=== PATIENT | female | born 1970 | race Two or more races ===

== ENCOUNTER 2017-12-03 13:12 | Outpatient (CLI) | payer OTHER | END 2017-12-03 15:54 | disposition home or self-care (01) | LOC: RAD 501 13:12 | DX: M54.2 Cervicalgia (principal); M25.511 Pain in right shoulder ==

== ENCOUNTER 2019-02-12 13:40 | Outpatient (CLI) | payer OTHER | END 2019-02-12 13:42 | disposition home or self-care (01) | LOC: RAD 13:40 | DX: M25.561 Pain in right knee (principal); M25.562 Pain in left knee ==